=== PATIENT | male | born 1980 | race African-American/Black ===

== ENCOUNTER 2017-11-16 22:06 | Emergency (ER) | payer MEDICAID ==
[~2017-11-16] VITALS: Ht 175.3 cm; Wt 79.0 kg
[2017-11-17 02:20] VITALS: BP 154/72
[2017-11-17 02:23] LABS: BASOPHILS % 1.2 % (0.0-2.0); EOSINOPHILS % 7.3 % (0.0-5.0); HEMATOCRIT. 42.9 % (42.0-52.0); HEMOGLOBIN. 14.2 g/dL (14.0-18.0); LYMPHOCYTES % 21.9 % (20.0-50.0); MEAN CORPUSCULAR HEMOGLOBIN 29.2 pg (28.0-32.0); MEAN CORPUSCULAR VOLUME 88.4 fL (80.0-94.0); MONOCYTES % 8.4 % (2.0-8.0); NEUTROPHILS % 61.2 % (40.0-76.0); PLATELET 153 x1000/uL (130-400); RED BLOOD CELL COUNT 4.85 mill/uL (4.7-6.1); RED CELL DISTRIBUTION WIDTH 14.4 % (11.6-14.6)
[2017-11-17 02:29] LABS: CHLORIDE 107 mEq/L (98-107)
[2017-11-17 02:33] LABS: ETHANOL BLOOD < 10 mg/dL
== END 2017-11-17 03:45 | disposition home or self-care (01) ==
LOC: ER 22:33
DX: F41.9 Anxiety disorder, unspecified (principal); I10 Essential (primary) hypertension; F12.10 Cannabis abuse, uncomplicated; Z91.041 Radiographic dye allergy status
CPT/HCPCS: 36415; 80053; 80307; 80329; 84443; 85025; 99284; G0482

== ENCOUNTER 2017-11-17 04:05 | Emergency (ER) | payer MEDICAID ==
[~2017-11-17] VITALS: Ht 175.3 cm; Wt 84.0 kg
[2017-11-17] MEDS ORDERED: IBUPROFEN 800MG TABLET PO ONE (06:45)
[2017-11-17] MEDS ORDERED: ACETAMINOPHEN 325MG TABLET PO ONE (06:45)
[2017-11-17 06:50] VITALS: BP 134/99
== END 2017-11-17 07:11 | disposition home or self-care (01) ==
LOC: ER 04:49
DX: R51 Headache (principal); F41.9 Anxiety disorder, unspecified; R03.0 Elevated blood-pressure reading, without diagnosis of hypertension; Z87.891 Personal history of nicotine dependence
CPT/HCPCS: 99284

== ENCOUNTER 2017-11-17 07:39 | Emergency (ER) | payer MEDICAID ==
[~2017-11-17] VITALS: Ht 175.3 cm; Wt 82.0 kg
[2017-11-17 07:55] VITALS: BP 156/99
== END 2017-11-17 13:09 | disposition home or self-care (01) ==
LOC: ER 07:51
DX: F41.9 Anxiety disorder, unspecified (principal); F32.9 Major depressive disorder, single episode, unspecified
CPT/HCPCS: 99284

== ENCOUNTER 2018-01-20 12:03 | Emergency (ER) | payer MEDICAID ==
[~2018-01-20] VITALS: Ht 172.7 cm; Wt 82.0 kg
[2018-01-20 12:06] VITALS: BP 151/100
[2018-01-20] MEDS ORDERED: BACITRACIN ZINC 15GM TUBE TOP ONE (12:45)
[2018-01-20] MEDS ORDERED: TETANUS, DIPHTHERIA, PERTUSSIS VAC/PF 0.5ML (>7YR OLD) IM ONE (12:45)
[2018-01-20] MEDS ORDERED: ACETAMINOPHEN 325MG TABLET PO ONE (12:45)
[2018-01-20] MEDS ORDERED: BACITRACIN ZINC OINT UDPKT TOP ONE (13:15)
[2018-01-20] MEDS ORDERED: LIDOCAINE HCL 1% 20ML VIAL (Pyxis) INJ MC ONE (13:15)
[2018-01-20] MEDS ORDERED: LIDOCAINE HCL/PF 1% 10 MG/ML 5ML VIAL INL NR (13:15)
[2018-01-20 14:11] LABS: CLARITY URINE CLEAR (CLEAR); COLOR URINE YELLOW (YELLOW); KETONES URINE NEGATIVE (NEGATIVE); LEUKOCYTE ESTERASE URINE NEGATIVE (NEGATIVE); NITRITE URINE NEGATIVE (NEGATIVE); OCCULT BLOOD URINE NEGATIVE (NEGATIVE); PROTEIN URINE NEGATIVE (NEGATIVE); SPECIFIC GRAVITY URINE 1.013 (1.005-1.030)
[2018-01-20 14:56] LABS: *AMPHETAMINES SCREEN URINE PRESUMTIVE POSITIVE (NEGATIVE); *BARBITURATES SCREEN URINE NEGATIVE (NEGATIVE); *BENZODIAZEPINES SCREEN URINE NEGATIVE (NEGATIVE); *COCAINE SCREEN URINE NEGATIVE (NEGATIVE)
[2018-01-20 14:57] LABS: CANNABINOID URINE SCREEN PRESUMTIVE POSITIVE (NEGATIVE); METHADONE URINE SCREEN NEGATIVE (NEGATIVE); OPIATES URINE SCREEN NEGATIVE (NEGATIVE); PHENCYCLIDINE URINE SCREEN NEGATIVE (NEGATIVE)
== END 2018-01-20 15:27 | disposition home or self-care (01) ==
LOC: ER 12:03
DX: S02.2XXA Fracture of nasal bones, initial encounter for closed fracture (principal); S01.511A Laceration without foreign body of lip, initial encounter; S01.21XA Laceration without foreign body of nose, initial encounter; S09.8XXA Other specified injuries of head, initial encounter; F32.9 Major depressive disorder, single episode, unspecified; J45.909 Unspecified asthma, uncomplicated; F15.10 Other stimulant abuse, uncomplicated; Z53.29 Procedure and treatment not carried out because of patient's decision for other reasons; Y04.0XXA Assault by unarmed brawl or fight, initial encounter; Y93.89 Activity, other specified; Y92.512 Supermarket, store or market as the place of occurrence of the external cause
CPT/HCPCS: 70450; 70486; 71045; 72125; 80305; 81003; 90471; 90715; 99285; J3490